=== PATIENT | male | born 1980 | race Caucasian/White ===

== ENCOUNTER 2017-02-12 00:53 | Emergency (ER) | payer SELFPAY ==
[~2017-02-12] VITALS: Ht 175.3 cm; Wt 100.0 kg
[2017-02-12 01:01] VITALS: BP 161/78; PULSE 100; RESP 22; TEMP 98.8; O2SAT 98
[2017-02-12] MEDS ORDERED: METH40TA PO (01:06)
[2017-02-12] MEDS ORDERED: ASPIRIN 81 MG CHEW TAB PO ONE (01:15)
[2017-02-12] MEDS ORDERED: SODIUM CHLORIDE 0.9% FLUSH 10 ML FLUSH IVF PRN (01:15)
[2017-02-12] MEDS ORDERED: NITROGLYCERIN 2% OINT 1 GM PACKET TOP ONE (01:15)
[2017-02-12] MEDS ORDERED: SODIUM CHLORID 0.9% 500 ML INJ 500 ML IV ONE (01:15)
--- NOTE | 2017-02-12 01:22 | PD ---
HPI Chief Complaint: Chest Pain Time Seen by Provider: 01:13 Travel History International Travel<30 days: No Contact w/Intl Traveler<30days: No Traveled to known affect area: No History of Present Illness HPI The patient is a 36 year old male who presents to the [facility] emergency department with a history of chest pain that began at 11: 30 PM. It lasted for 45 minutes.It is a tightening sensation. It was associated with a strange sensation that was difficult for him to describe in the his left arm. He had sweaty palms, shortness of breath, and nausea with it. He has been having chest pain that has been coming and going for the last 2-3 months. It has been occurring a few times a week. It usually occurs at night or with laying down. He reports that he does have a history of indigestion. He denies taking any medication for this. He denies ever being diagnosed with anxiety. He reports that the chest pain is making him feel anxious. The patient's chest pain resolved prior to arrival. On review of systems, the patient denies any recent fevers, cough, congestion, neck pain, abdominal pain, vomiting, diarrhea, urinary symptoms, or neurologic symptoms. He denies having a PCP. The patient denies having any known history of hypertension, hyperlipidemia, or diabetes mellitus. He denies having any known family history of heart disease. He does however report that he smokes 2 packs of cigarettes per day. 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 Medical History: Denies Significant Hx Tetanus Vaccination: > 5 Years Influenza Vaccination: No Past Surgical History Narrative Surgical The patient's past surgical history is significant for none. Surgical History: No Previous Surgery Family History Family Myocardial Infarction: No Social History Alcohol Use: Yes (BEER 2XWEEK, 2-4 beers) Tobacco Use: Yes (2PACKS/DAY) Substance Use: No (HX HEROIN) Allergies-Medications (Allergen,Severity, Reaction): Coded Allergies: No Known Allergies (Unverified , 02/12/17) Reported Meds & Prescriptions Reported Meds & Active Scripts Active Reported Methadone (Methadone HCl) 40 Mg Tab 140 Mg PO DAILY Review of Systems Except as stated in HPI: all other systems reviewed are Neg General / Constitutional: No: Fever Eyes: No: Visual changes HENT: No: Headaches Cardiovascular: Positive: Chest Pain or Discomfort, Dyspnea on exertion Respiratory: Positive: Shortness of Breath, No: Cough Gastrointestinal: Positive: Nausea, Indigestion, No: Vomiting, Diarrhea, Abdominal Pain Genitourinary: No: Dysuria Musculoskeletal: No: Pain Skin: No Rash Neurologic: No: Weakness Psychiatric: Positive: Anxiety, No: Depression Endocrine: No: Polydipsia Hematologic/Lymphatic: No: Easy Bruising Physical Exam Narrative General: The patient is a well-developed well-nourished male in no acute distress Head and Neck exam: Head is normocephalic atraumatic. Eyes: EOMI, pupils are equal round and reactive to light. Nose: Midline septum with pink mucous membranes Mouth: Dentition unremarkable. Moist mucus membranes. Posterior oropharynx is not erythematous. No tonsillar hypertrophy. Uvula midline. Airway patent. Neck: No palpable lymphadenopathy. No nuchal rigidity. No thyromegaly. Cardiovascular: Regular rate and rhythm without murmurs, gallops, or rubs. No pulse deficit to the extremities and simultaneous auscultation and palpation of his radial artery. Lungs: Clear to auscultation bilaterally. No wheezes, rhonchi, or rales. Abdomen: Soft, without tenderness to palpation in all 4 quadrants of the abdomen. No guarding, rebound, or rigidity. Normal bowel sounds are audible. No tenderness on palpation of McBurney's point. Extremities: No clubbing, cyanosis, or edema. 2+ pulses in all 4 extremities. No calf tenderness on palpation. Back: No spinous process tenderness to palpation. No costovertebral angle tenderness to palpation. Neurologic Exam: Grossly nonfocal. Skin Exam: No rash noted. Intact skin that is warm and dry. Data Data Last Documented VS Vital Signs Date Time Temp Pulse Resp B/P (MAP) Pulse Ox O2 Delivery O2 Flow Rate FiO2 02/12/17 01:25 99.3 95 18 161/78 (105) 99 Room Air Orders Orders Electrocardiogram (02/12/17 01:13) B-Type Natriuretic Peptide (02/12/17 01:13) Ckmb (Isoenzyme) Profile (02/12/17 01:13) Complete Blood Count With Diff (02/12/17 01:13) Comprehensive Metabolic Panel (02/12/17 01:13) D-Dimer (02/12/17 01:13) Magnesium (Mg) (02/12/17 01:13) Prothrombin Time / Inr (Pt) (02/12/17 01:13) Act Partial Throm Time (Ptt) (02/12/17 01:13) Troponin I (02/12/17 01:13) Lipase (02/12/17 01:13) Chest, Single Ap (02/12/17 01:13) Ecg Monitoring (02/12/17 01:13) Bilateral Bp Monitoring (02/12/17 01:13) Iv Access Insert/Monitor (02/12/17 01:13) Oximetry (02/12/17 01:13) Oxygen Administration (02/12/17 01:13) Aspirin Chew (Aspirin Chew) (02/12/17 01:15) Nitroglycerin 2% Oint (Nitroglycerin 2% (02/12/17 01:15) Sodium Chloride 0.9% Flush (Ns Flush) (02/12/17 01:15) Sodium Chlorid 0.9% 500 Ml Inj (Ns 500 M (02/12/17 01:15) Famotidine Inj (Pepcid Inj) (02/12/17 01:45) CKMB (02/12/17 02:18) CKMB% (02/12/17 02:18) Admit Order (Ed Use Only) (02/12/17 03:42) Labs Laboratory Tests Test 02/12/17 02:18 White Blood Count 8.9 TH/MM3 Red Blood Count 5.29 MIL/MM3 Hemoglobin 15.6 GM/DL Hematocrit 47.0 % Mean Corpuscular Volume 88.9 FL Mean Corpuscular Hemoglobin 29.5 PG Mean Corpuscular Hemoglobin Concent 33.2 % Red Cell Distribution Width 14.7 % Platelet Count 326 TH/MM3 Mean Platelet Volume 9.2 FL Neutrophils (%) (Auto) 74.8 % Lymphocytes (%) (Auto) 15.9 % Monocytes (%) (Auto) 8.6 % Eosinophils (%) (Auto) 0.2 % Basophils (%) (Auto) 0.5 % Neutrophils # (Auto) 6.7 TH/MM3 Lymphocytes # (Auto) 1.4 TH/MM3 Monocytes # (Auto) 0.8 TH/MM3 Eosinophils # (Auto) 0.0 TH/MM3 Basophils # (Auto) 0.0 TH/MM3 CBC Comment DIFF FINAL Differential Comment Prothrombin Time 10.2 SEC Prothromb Time International Ratio 0.9 RATIO Activated Partial Thromboplast Time 27.1 SEC D-Dimer Quantitative (PE/DVT) LESS THAN 0.19 MG/L FEU Blood Urea Nitrogen 14 MG/DL Creatinine 0.92 MG/DL Random Glucose 91 MG/DL Total Protein 8.3 GM/DL Albumin 3.9 GM/DL Calcium Level 8.9 MG/DL Magnesium Level 2.2 MG/DL Alkaline Phosphatase 81 U/L Aspartate Amino Transf (AST/SGOT) 60 U/L Alanine Aminotransferase (ALT/SGPT) 64 U/L Total Bilirubin 0.3 MG/DL Sodium Level 138 MEQ/L Potassium Level 5.4 MEQ/L Chloride Level 104 MEQ/L Carbon Dioxide Level 29.7 MEQ/L Anion Gap 4 MEQ/L Estimat Glomerular Filtration Rate 94 ML/MIN Total Creatine Kinase 236 U/L Creatine Kinase MB 1.7 NG/ML Troponin I LESS THAN 0.02 NG/ML B-Type Natriuretic Peptide 28 PG/ML Lipase 74 U/L MDM Medical Decision Making Medical Screen Exam Complete: Yes Emergency Medical Condition: Yes Medical Record Reviewed: Yes Interpretation(s) Last Impressions Chest X-Ray 02/12/17 0113 Signed Impressions: Service Date/Time: Sunday, February 12, 2017 01:33 - CONCLUSION: No evidence of acute cardiopulmonary disease. Joseph Mondragon MD Differential Diagnosis Acute coronary syndrome, versus acid reflux, versus anxiety disorder, versus pneumothorax, versus new-onset congestive heart failure, versus pulmonary embolism Narrative Course During the course of the patients emergency department visit, the patients history, examination, and differential diagnosis were reviewed with the patient. The patient had IV access obtained and blood work sent for analysis. The patient was placed on a ekg monitor tech with oximetry and blood pressure monitoring. The patient had an ECG done on arrival that shows a sinus rhythm with a heart rate of 92, QRS duration is 86 ms, QTc is 404 ms. The patient has no acute ST segment elevation or depression. The patient reports that he took an adult aspirin prior to arrival. The patient was given nitroglycerin 1 inch to the chest wall. The patient reports having a history of difficulties with indigestion which could be contributed to the symptoms, therefore the patient was given famotidine 20 mg IV. The patients laboratory studies were reviewed and remarkable for a white count of 8.9, hemoglobin 15.6, platelets 326 with 74.8 neutrophils, monocytes 8.6, CMP is remarkable for potassium of 5.4, anion gap 4, AST 60, CPK 236, MB 1.7, troponin I less than 0.02, BNP is 28, lipase 74, PT PTT within normal limits, d- dimer is less than 0.19 decreasing the likelihood of pulmonary embolism in this patient with no other significant risk factors. Radiology studies were reviewed and remarkable for a chest x-ray that shows no evidence of acute cardiopulmonary disease. The patients results were discussed with the patient, including the plan of care. I explained that further testing and/ or monitoring is indicated based on the patients history, examination, and/ or laboratory findings. Therefore, I recommended admission for additional evaluation. The patient expressed understanding and was agreeable with this plan. The patient was admitted to the hospital in stable condition and sent to a bed under the care of the chest pain center. Diagnosis Primary Impression: Chest pain, rule out acute myocardial infarction Admitting Information Admitting Physician Requests: Swati Kan MD Feb 12, 2017 01:22
[2017-02-12 01:25] VITALS: BP 161/78; PULSE 95; RESP 18; TEMP 99.3; O2SAT 99
[2017-02-12] MEDS ORDERED: FAMOTIDINE INJ 20 MG in SODIUM CHLORIDE 0.9% INJ 98 ML IV ONE (01:45)
--- NOTE | 2017-02-12 01:49 | RADRPT ---
EXAM DATE/TIME: 02/12/2017 01:33 [facility] COMPARISON: No previous studies available for comparison. INDICATIONS : Chest pain. MEDICAL HISTORY : None. SURGICAL HISTORY : None. ENCOUNTER: Initial ACUITY: 1 day PAIN SCORE: 7/10 LOCATION: Left upper chest FINDINGS: A single view of the chest demonstrates the lungs to be symmetrically aerated without evidence of mas s, infiltrate or effusion. The cardiomediastinal contours are unremarkable. Osseous structures are intact. CONCLUSION: No evidence of acute cardiopulmonary disease. Joseph Mondragon MD on February 12, 2017 at 1:47 Board Certified Radiologist. This report was verified electronically.
[2017-02-12 02:43] LABS: AUTOMATED NEUTROPHIL # 6.7 TH/MM3 (1.8-7.7); BASOPHIL % 0.5 % (0.0-2.0); EOSINOPHIL % 0.2 % (0.0-4.0); HEMO FLAGS DIFF FINAL; LYMPH % 15.9 % (9.0-44.0); LYMPHOCYTE # 1.4 TH/MM3 (1.0-4.8); MEAN CELL VOLUME 88.9 FL (80.0-100.0); MEAN CORPUSCULAR HEMOGLOBIN 29.5 PG (27.0-34.0); MEAN CORPUSCULAR HGB CONC 33.2 % (32.0-36.0); MONO % 8.6 % (0.0-8.0); NEUT % 74.8 % (16.0-70.0); PLATELET COUNT 326 TH/MM3 (150-450); RED BLOOD COUNT 5.29 MIL/MM3 (4.50-5.90); RED CELL DISTRIBUTION WIDTH 14.7 % (11.6-17.2); WHITE BLOOD COUNT 8.9 TH/MM3 (4.0-11.0)
[2017-02-12 02:53] LABS: APTT (PATIENT) 27.1 SEC (24.3-30.1); INTERNATIONAL NORMALIZED RATIO 0.9 RATIO; PROTHROMBIN TIME - PATIENT 10.2 SEC (9.8-11.6)
[2017-02-12 03:38] LABS: ALKALINE PHOSPHATASE 81 U/L (45-117); ALT (GPT) 64 U/L (12-78); ANION GAP 4 MEQ/L (5-15); AST (GOT) 60 U/L (15-37); BICARBONATE 29.7 MEQ/L (21.0-32.0); BLOOD UREA NITROGEN 14 MG/DL (7-18); CHLORIDE 104 MEQ/L (98-107); CREATINE KINASE 236 U/L (39-308); GLOMERULAR FILTRATION RATE 94 ML/MIN (>89); MAGNESIUM 2.2 MG/DL (1.5-2.5); SODIUM (NA) 138 MEQ/L (136-145); TOTAL BILIRUBIN ADULT 0.3 MG/DL (0.2-1.0)
[2017-02-12 03:39] LABS: POTASSIUM 5.4 MEQ/L (3.5-5.1)
[2017-02-12 03:52] LABS: CKMB 1.7 NG/ML (0.5-3.6)
[2017-02-12 04:00] VITALS: BP 122/63; PULSE 56; RESP 14; O2SAT 98
[2017-02-12] MEDS ORDERED: SODIUM CHLORIDE 0.9% FLUSH 10 ML FLUSH IV FLUSH PRN (04:30)
[2017-02-12 06:24] LABS: CREATINE KINASE 168 U/L (39-308)
[2017-02-12 06:37] LABS: CKMB 1.5 NG/ML (0.5-3.6)
[2017-02-12] MEDS ORDERED: SODIUM CHLORIDE 0.9% FLUSH 10 ML FLUSH IV FLUSH SCH (09:00)
--- NOTE | 2017-02-13 17:04 | EKG ---
Date Performed: 02/12/2017 Time Performed: 05:32:55 PTAGE: 36 years EKG: SINUS BRADYCARDIA WITH SINUS ARRHYTHMIA BORDERLINE ECG Since PREVIOUS TRACING , no significant change noted PREVIOUS TRACIN02/12/2017 01.34 DOCTOR: Caro Cortes Interpretating Date/Time 02/13/2017 17:03:26
--- NOTE | 2017-02-13 17:05 | EKG ---
Date Performed: 02/12/2017 Time Performed: 01:34:45 PTAGE: 36 years EKG: Sinus rhythm NORMAL ECG NO PREVIOUS TRACING DOCTOR: Caro Cortes Interpretating Date/Time 02/13/2017 17:04:08
== END 2017-02-12 06:30 | disposition left against medical advice (07) ==
LOC: NEPE 00:53 → NEDH 03:44 → UNDOADMOB 03:44 → UNDODISOB 06:30
DX: R07.9 Chest pain, unspecified (principal); R06.02 Shortness of breath; R00.1 Bradycardia, unspecified; F17.210 Nicotine dependence, cigarettes, uncomplicated
CPT/HCPCS: 71010; 80053; 82550; 82552; 83690; 83735; 83880; 84484; 85025; 85379; 85610; 85730; 93005; 96365; 99285; J7040